=== PATIENT | male | born 1995 | race Caucasian/White ===

== ENCOUNTER 2018-09-15 05:40 | Inpatient (IN) | END 2018-09-17 12:55 | disposition home or self-care (01) | DRG 445 ==

== ENCOUNTER 2019-02-12 00:22 | Emergency (ER) | payer OTHER ==
[~2019-02-12] VITALS: Ht 172.7 cm; Wt 87.5 kg
[~2019-02-12 00:22] MED LIST: AMOX1TAB10 PO
[2019-02-12 00:38] VITALS: Ht 172.7 cm; Wt 87.5 kg
[2019-02-12] MEDS ORDERED: BACI28.34 TOP (01:08)
[2019-02-12] MEDS ORDERED: HC30CR25 TOP (01:08)
[2019-02-12] MEDS ORDERED: CLOT30CR24 TOP (01:08)
[2019-02-12 01:28] VITALS: BP 125/74; PULSE 66; RESP 17
--- NOTE | 2019-02-12 01:50 | ERD ---
ER Documentation Chief Complaint Chief Complaint bumps on penis,itching HPI 24-year-old male with no significant past medical history presenting to the emergency department with complaints of rash to the shaft and head of his penis which began yesterday. Associated symptoms include pruritus. He tried no medication for relief of symptoms. He states he has multiple female sexual partners and he never wears protection. He denies any penile discharge, dysuria, testicular pain, fevers, chills, or other symptoms at this time. ROS All systems reviewed and are negative except as per history of present illness. Medications Home Meds Active Scripts Hydrocortisone* Topical (Hydrocortisone* Topical) 2.5%-28.3 Gm Cream..g., 1 APPLIC TOP BID, #1 TUB Prov:JASMIN GARCIA PA-C 02/12/19 Clotrimazole* (Clotrimazole* AF) 1% - 30 Gm Cream.gm., 1 APPLIC TOP BID for 7 Days, TUB Prov:JASMIN GARCIA PA-C 02/12/19 Bacitracin* (Bacitracin Zinc Oint*) 28.35 Gm Oint, 1 APPLIC TOP BID, #1 TUB APPLI TO Prov:JASMIN GARCIA PA-C 02/12/19 Amoxicillin/Potassium Clav (Amox-Clav 875-125 mg Tablet) 875-125 mg Tab, 1 TAB PO BID for 10 Days, #20 TAB Prov:PARAG SEWELL MD 09/17/18 Allergies Allergies: Coded Allergies: No Known Allergy (Unverified , 09/15/18) PMhx/Soc History of Surgery: Yes ([facility]) Anesthesia Reaction: No Hx Neurological Disorder: No Hx Respiratory Disorders: No Hx Cardiac Disorders: No Hx Psychiatric Problems: No Hx Miscellaneous Medical Probl: No Hx Alcohol Use: No Hx Substance Use: No Hx Tobacco Use: No Smoking Status: Former smoker FmHx Family History: No diabetes Physical Exam Vitals Vital Signs Date Temp Pulse Resp B/P (MAP) Pulse Ox O2 O2 Flow FiO2 Time Delivery Rate 02/12/19 98.0 66 17 125/74 98 Room Air 01:28 (91) 02/12/19 98.9 69 18 143/93 99 00:38 (110) Physical Exam Const: No acute distress Head: Atraumatic Eyes: Normal Conjunctiva ENT: Normal External Ears, Nose and Mouth. Neck: Full range of motion. No meningismus. Resp: No respiratory distress. Exam: Penis: Macular papular type rash noted to the glans penis and the penile shaft. Scrotum: Normal Hernia: None Testes/Epid: Non-tender w/ normal lie Cremaster: Reflex intact Lymph: No inguinal lymphadenopathy Discharge: None Skin: No petechiae or rashes Ext: No cyanosis, or edema Neur: Awake and alert Psych: Normal Mood and Affect Procedures/MDM 24-year-old male presented to the emergency department with signs and symptoms most consistent with dermatitis and balanitis. Patient has had no penile discharge and I doubt sexually transmitted infection. Exam was not consistent with herpes at this time. Patient stable and appropriate for discharge and further outpatient management with prescriptions for topical management. Patient was in agreement with the diagnosis, plan, need for follow-up, return p recautions. No evidence of life-threatening pathology at time of discharge. Departure Diagnosis: Primary Impression: Dermatitis Additional Impression: Balanitis Condition: Fair Patient Instructions: What Are Sexually Transmitted Diseases (STDs)?, Balanitis Referrals: [facility] YOU HAVE RECEIVED A MEDICAL SCREENING EXAM AND THE RESULTS INDICATE THAT YOU DO NOT HAVE A CONDITION THAT REQUIRES URGENT TREATMENT IN THE EMERGENCY DEPARTMENT. FURTHER EVALUATION AND TREATMENT OF YOUR CONDITION CAN WAIT UNTIL YOU ARE SEEN IN YOUR DOCTORS OFFICE WITHIN THE NEXT 1-2 DAYS. IT IS YOUR RESPONSIBILITY TO MAKE AN APPOINTMENT FOR FOLOW-UP CARE. IF YOU HAVE A PRIMARY DOCTOR --you should call your primary doctor and schedule an appointment IF YOU DO NOT HAVE A PRIMARY DOCTOR YOU CAN CALL OUR PHYSICIAN REFERRAL HOTLINE AT IF YOU CAN NOT AFFORD TO SEE A PHYSICIAN YOU CAN CHOSE FROM THE FOLLOWING [facility] [id number] [facility] [address] [facility] [address] [facility]. [facility] [address] [facility]. [facility] [address] [facility]. [facility]. [address] Additional Instructions: Call your primary care doctor TOMORROW for an appointment during the next 1-2 days.See the doctor sooner or return here if your condition worsens before your appointment time. JASMIN GARCIA PA-C February 12, 2019 01:50
== END 2019-02-12 01:28 | disposition home or self-care (01) ==
LOC: FTE 00:22
DX: L30.9 Dermatitis, unspecified (principal); N48.1 Balanitis; Z87.891 Personal history of nicotine dependence
CPT/HCPCS: 99283